=== PATIENT | male | born 1960 | race Caucasian/White ===

== ENCOUNTER → 2025-02-09 | Outpatient (CLI) | payer OTHER, SELFPAY | END | disposition home or self-care (01) | LOC: MTRAD 11:51 | PROVIDERS: PCP Family Medicine; Referring Provider Physician Assistant Surgical; Visit Provider Physician Assistant Surgical | DX: M25.521 Pain in right elbow (principal) | CPT/HCPCS: 73080 ==

== ENCOUNTER → 2025-02-23 | Outpatient (CLI) | payer OTHER, SELFPAY ==
[2025-02-23 10:46] LABS: Hematocrit 43.5 % (40-54); Hemoglobin 14.5 g/dL (13.0-16.5); Immature Granulocytes Count 0.020 X10^3/uL (0.0-0.0); Mean Corp Hgb Conc 33.3 g/dL (32-36); Mean Corpuscular Volume 92.6 fL (80-94); Mean Platelet Vol. 9.0 fl (6.2-12.0); NRBC Flagged by Analyzer 0 % (0-5); Platelet Count 180 K/mm3 (150-450); RBC Distribution Width CV 12.9 % (11.6-14.6); RBC Distribution Width SD 43.8 fl (35.1-43.9); Red Blood Count 4.70 M/mm3 (4.6-6.2); White Blood Count 7.7 K/mm3 (4.4-11.0)
[2025-02-23 11:35] LABS: AST(SGOT) 13 U/L (<=37); Alanine Aminotransfer ALT/SGPT 18 U/L (<=46); Albumin, Serum 3.8 g/dL (3.4-4.8); Alkaline Phosphatase 47 U/L (40-129); Anion Gap 11 (5-15); BUN 18 mg/dL (4-19); BUN/Creat Ratio 14.4 RATIO (10-20); Calcium,Total 9.4 mg/dL (7.6-11.0); Carbon Dioxide 28.4 mmol/L (21.0-32.0); Chloride 102 mmol/L (98-108); Cholesterol 176 mg/dL (<=200); Globulin 2.7 g/dL (2.2-4.2); Glucose 91 mg/dL (70-99); Low Density Lipoprotein Calc. 93 mg/dL; PSA,Total - Annual Screen 0.44 ng/mL (0.02-4.00); Potassium 4.0 mmol/L (3.3-5.1); Triglycerides 148 mg/dL; Very Low Density Lipoprotein 30 mg/dL (5-40); Vitamin D,25 Hydroxy 30.0 ng/mL (30-100); cholesterol:hdl ratio screen 3.27
== END | disposition home or self-care (01) ==
LOC: MTLAB 09:22
PROVIDERS: PCP Family Medicine; Referring Provider Family Medicine; Visit Provider Family Medicine
DX: E78.5 Hyperlipidemia, unspecified (principal); Z13.1 Encounter for screening for diabetes mellitus; Z12.5 Encounter for screening for malignant neoplasm of prostate
CPT/HCPCS: 36415; 80053; 80061; 82306; 84153; 85025; G0103

== ENCOUNTER → 2025-03-03 | Outpatient (CLI) | payer OTHER, SELFPAY ==
--- NOTE | 2025-03-03 07:51 | AAAS_ITS ---
Reason For Study Reason For Study: Tobacco Abuse / AAA Screening Aorta Measurements Aorta Doppler Measurements Proximal aorta measures2.38 x 2.37cm. in cross-sectional Peak systolic flow velocities within the proximal aorta axis. measure 66.9 cm/sec. Proximal aorta measures2.32cm. in longitudinal axis. Peak systolic flow velocities within the mid aorta measure Mid aorta measures1.91 x 1.87cm. in cross-sectional axis. 59.6 cm/sec. Mid aorta measures1.94cm. in longitudinal axis. Peak systolic flow velocities within the distal aorta Distal aorta measures1.64 x 1.62cm. in cross-sectional axis.measure 68.7 cm/sec. Distal aorta measures1.86cm. in longitudinal axis. Left Iliac Artery Left iliac artery measures 1.05 x 1.03 cm. in the cross-sectional axis. Left iliac artery measures 1.06 cm. in the longitudinal axis. Peak systolic velocity in the left iliac artery measures 72.3 cm/sec. Right Iliac Artery Right iliac artery measures 1.17 x 1.22 cm. in the cross-sectional axis. Right iliac artery measures 1.28 cm. in the longitudinal axis. Peak systolic velocity in the right iliac artery measures 110.4 cm/sec. VL/AAA Screening Interpretation Summary The dimensions of the intra-abdominal aorta are normal, without evidence of ane urysmal dilatation. The iliac arteries also appear to be normal in caliber bilaterally. The intra-abdominal aorta and iliac arteries appear patent, demonstrating normal, pulsatile arterial flow and normal peak systolic velociti es. Ordering Physician: Annetta Fernandez Referring Physician: Annetta Fernandez Performed By: Brian Zapien RVT
--- OUTSIDE RECORDS SUMMARY | 2025-03-03 08:09 | XMS RPT_ITS | CCD ---
Author Organization [facility] Care Team Providers Care Digital Hardware Design Engineer Name Role Phone Waldo Hayden Attending Provider Annetta Fernandez MD Primary Care Provider [phone] Waldo Hayden Referring Provider [phone] Annetta Fernandez MD Attending Provider [phone] Annetta Fernandez MD Referring Provider [phone] Wadlo Hayden Referring Unavailable Waldo Hayden Attending Unavailable Rebecca, Annetta Primary Care Unavailable Rebecca, Annetta Primary Care Unavailable Rebecca, Annetta Referring Unavailable Rebecca, Annetta Attending Unavailable Rebecca, Chalon Primary Care Unavailable Rebecca, Topheron Referring Unavailable Rebecca, Annetta Attending Unavailable Nasir TONY, Waldo Attending Unavailable Nasir TONY, Waldo Attending Unavailable Medications Current Medications Medication Drug Class(es) Dates Sig (Normalized) Sig (Original) aspirin 81 mg oral tablet (4 sources) Platelet Aggregation Inhibitor, Nonsteroidal Anti-inflammatory Drug Start: 02-03-2025 take 1 tablet by mouth once daily Aspirin 81 mg tablet Active 81 mg PO daily February 03, 2025 12:00am pravastatin sodium 80 mg oral tablet (4 sources) HMG-CoA Reductase Inhibitor Start: 02-03-2025 take 1 tablet by mouth once daily Pravastatin 80 mg tablet Active 80 mg PO daily February 03, 2025 12:00am Completed/Discontinued Medications Medication Drug Class(es) Dates Sig (Normalized) Sig (Original) diclofenac potassium 50 mg oral tablet (6 sources) Nonsteroidal Anti-inflammatory Drug Start: 02-09-2025 End: 02-19-2025 take 1 tablet by mouth twice daily Diclofenac Potassium 50 mg tablet Discontinued 50 mg PO TWICE A DAY 20 10 0 February 09, 2025 12:00am February 18, 2025 12:00am February 19, 2025 12:07am Start: 02-03-2025 Diclofenac Sod ium (Arthritis Pain (Diclofenac)) 1 % gel Active 4 g TOPICAL TWICE A DAY 50 0 February 03, 2025 12:00am apply to single knee, ankle, foot; for foot includes sole/toes/top of foot predniSONE 10 mg oral tablet (6 sources) Start: 02-09-2025 End: 02-21-2025 Prednisone 10 mg tablet Discontinued 10 mg PO As Directed 30 12 0 February 09, 2025 12:00am February 20, 2025 12:00am February 21, 2025 12:05am Unspecified contact dermatitis, unspecified cause Take 4 tabs once daily days 1-3 3 tabs once daily days 4-6 2 tabs once daily days 7-9 and 1 tab once daily days 10-12. Start: 02-03-2025 End: 02-08-2025 take 2 tablets by mouth once daily Prednisone 20 mg tablet Discontinued 40 mg PO daily 10 5 0 February 03, 2025 12:00am February 07, 2025 12:00am February 08, 2025 12:05am Problems Problem Classification Problem Date Documented Da te Episodic/Chronic Allergic reactions (5 sources) Environmental allergy; Translations: [Other allergy status, other than to drugs and biological substances] Onset: 02-09-2025 02-03-2025 Episodic Coronary atherosclerosis and other heart disease (4 sources) Coronary arteriosclerosis; Translations: [Atherosclerotic heart disease of [place] coronary artery without angina pectoris] 02-03-2025 Chronic Disorders of lipid metabolism (5 sources) Hyperlipidemia; Translations: [Hyperlipidemia, unspecified] Onset: 02-28-2025 02-03-2025 Chronic Gout and other crystal arthropathies (8 sources) 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; Translations: [Gout, unspecified] 02-03-2025 Chronic Other non-traumatic joint disorders (1 source) Pain in right elbow; Translations: [Pain in right elbow] Onset: 02-17-2025 Episodic Residual codes; unclassified (1 source) Tobacco use; Translations: [Tobacco use] Onset: 02-22-2025 Episodic Results Test Name Value Interpretation Reference Range Facility Absolute lymphocyte countOrd ered By: Annetta Fernandez on 2025 Lymphocytes Auto (Unsp spec) [#/Vol] 2.21 10*3/uL 0.83-4.51 [facility] Absolute neutrophil countOrd ered By: Annetta Ibanezke on 2025 Neutrophils (Bld) [#/Vol] 4.8 10*3/uL 2.0-7.7 [facility] Anion gap in Serum or Plasma Ordered By: Annetta Fernandez on 2025 Anion gap [Moles/Vol] 11 mmol/L 5-15 [facility] Automated lymphocyte count a s percentage of total leukocytesOrdered By: Annetta Fernandez on 2025 Lymphocytes/100 WBC Auto (Unsp spec) 28.8 % 19- [facility] BUN/creatinine ratioOrdered By: [facility]25 Urea nitrogen/Creatinine [Mass ratio] 14.4 mg/mg 10- [facility] Basophil percentageOrdered B y: Annetta Fernandez on 2025 Basophils/100 WBC (Bld) 0.8 % 0-1 [facility] Bilirubin, totalOrdered By: Annetta Fernandez on 2025 Bilirubin [Mass/Vol] 0.48 mg/dL 0.00-1.30 [facility] CBC W/Diff, Automatedon 02-07 Absolute Lymph 2.21 X10 3/uL Normal 0.83-4.51 [facility] Comment on above: Performed By: #### L 100.0100, L500.4100, L501.9910, L500.4050, L506.1001 #### [facility] [address] [place], [address] Absolute Neut 4.8 X10 3/uL Normal 2.0-7.7 [facility] Comment on above: Performed By: #### L 100.0100, L500.4100, L501.9910, L500.4050, L506.1001 #### [facility] [address] [place], [address] Basophils/100 WBC (Bld) 0.8 % Normal 0-1 [facility] Comment on above: Performed By: #### L 100.0100, L500.4100, L501.9910, L500.4050, L506.1001 #### [facility] [address] [place], [address] Eosinophils/100 WBC (Bld) 2.1 % Normal 0-5 [facility] Comment on above: Performed By: #### L 100.0100, L500.4100, L501.9910, L500.4050, L506.1001 #### [facility] [address] [place], [address] Erythrocyte distribution width (RBC) [Ratio] 12.9 % Normal 11.6-14.6 [facility] Comment on above: Performed By: #### L 100.0100, L500.4100, L501.9910, L500.4050, L506.1001 #### [facility] [address] [place], [address] Hematocrit (Bld) [Volume fraction] 43.5 % Normal 40-54 [facility] Comment on above: Performed By: #### L 100.0100, L500.4100, L501.9910, L500.4050, L506.1001 #### [facility] [address] [place], [address] Hemoglobin (Bld) [Mass/Vol] 14.5 g/dL Normal 13.0-16.5 [facility] Comment on above: Performed By: #### L 100.0100, L500.4100, L501.9910, L500.4050, L506.1001 #### [facility] [address] [place], [address] IG% 0.300 Normal 0.0-0.9 [facility] Comment on above: Result Comment: IG% - Immature Granulocytes (promyelocytes, myelocytes and metamyelocytes) > 1% indicates that a LEFT SHIFT is Present. Performed By: #### L 100.0100, L500.4100, L501.9910, L500.4050, L506.1001 #### [facility] [address] [place], [address] Lymphocytes/100 WBC (Bld) 28.8 % Normal 19-41 [facility] Comment on above: Performed By: #### L 100.0100, L500.4100, L501.9910, L500.4050, L506.1001 #### [facility] [address] [place], [address] MCH (RBC) [Entitic mass] 30.9 pg Normal 27.0-32.0 [facility] Comment on above: Performed By: #### L 100.0100, L500.4100, L501.9910, L500.4050, L506.1001 #### [facility] [address] [place], [address] MCHC (RBC) [Mass/Vol] 33.3 g/dL Normal 32-36 [facility] Comment on above: Performed By: #### L 100.0100, L500.4100, L501.9910, L500.4050, L506.1001 #### [facility] [address] [place], [address] MCV (RBC) [Entitic vol] 92.6 fL Normal 80-94 [facility] Comment on above: Performed By: #### L 100.0100, L500.4100, L501.9910, L500.4050, L506.1001 #### [facility] [address] [place], [address] Monocytes/100 WBC (Bld) 5.7 % Normal 0-10 [facility] Comment on above: Performed By: #### L 100.0100, L500.4100, L501.9910, L500.4050, L506.1001 #### [facility] [address] [place], [address] Neutrophils/100 WBC (Bld) 62.3 % Normal 47-70 [facility] Comment on above: Performed By: #### L 100.0100, L500.4100, L501.9910, L500.4050, L506.1001 #### [facility] [address] [place], [address] Nucleated RBC (Bld) [#/Vol] 0 10*3/uL Normal 0-5 [facility] Comment on above: Performed By: #### L 100.0100, L500.4100, L501.9910, L500.4050, L506.1001 #### [facility] [address] [place], [address] Platelet mean volume (Bld) [Entitic vol] 9.0 fL Normal 6.2-12.0 [facility] Comment on above: Performed By: #### L 100.0100, L500.4100, L501.9910, L500.4050, L506.1001 #### [facility] [address] [place], [address] Platelets (Bld) [#/Vol] 180 10*3/uL Normal 150-450 [facility] Comment on above: Performed By: #### L 100.0100, L500.4100, L501.9910, L500.4050, L506.1001 #### [facility] [address] [place], [address] RBC (Bld) [#/Vol] 4.70 10*6/uL Normal 4.6-6.2 [facility] Comment on above: Performed By: #### L 100.0100, L500.4100, L501.9910, L500.4050, L506.1001 #### [facility] [address] [place], [address] RDW SD 43.8 fl Normal 35.1-43.9 [facility] Comment on above: Performed By: #### L 100.0100, L500.4100, L501.9910, L500.4050, L506.1001 #### [facility] [address] [place], [address] WBC (Bld) [#/Vol] 7.7 10*3/uL Normal 4.4-11.0 [facility] Comment on above: Performed By: #### L 100.0100, L500.4100, L501.9910, L500.4050, L506.1001 #### [facility] [address] [place], [place], [address] Calculated very low density lipoprotein (VLDL) cholesterol measurementOrdered By: Annetta Fernandez on 2025 Calculated very low density lipoprotein (VLDL) cholesterol measurement 30 mg/dL 5-40 [facility] Carbon dioxide, total [Moles /volume] in Central venous bloodOrdered By: Annetta Fernandez on 2025 CO2 [Moles/Vol] 28.4 mmol/L 21.0-32.0 [facility] Chloride assayOrdered By: Glenroy Fernandez on 2025 Chloride [Moles/Vol] 102 mmol/L 98-108 [facility] Comprehensive Metabolic Prof ilon 2025 Albumin [Mass/Vol] 3.8 g/dL Normal 3.4-4.8 [facility] Comment on above: Performed By: #### L 100.0100, L500.4100, L501.9910, L500.4050, L506.1001 #### [facility] [address] [place], [address] Albumin/Globulin [Mass ratio] 1.4 {ratio} Normal 0.9-2.4 [facility] Comment on above: Performed By: #### L 100.0100, L500.4100, L501.9910, L500.4050, L506.1001 #### [facility] [address] [place], [address] ALK PHOS 47 U/L Normal 40-129 [facility] Comment on above: Performed By: #### L 100.0100, L500.4100, L501.9910, L500.4050, L506.1001 #### [facility] [address] [place], [address] ALT [Catalytic activity/Vol] 18 U/L Normal <=46 [facility] Comment on above: Performed By: #### L 100.0100, L500.4100, L501.9910, L500.4050, L506.1001 #### [facility] [address] [place], [address] AST [Catalytic activity/Vol] 13 U/L Normal <=37 [facility] Comment on above: Performed By: #### L 100.0100, L500.4100, L501.9910, L500.4050, L506.1001 #### [facility] [address] [place], [address] Bilirubin [Mass/Vol] 0.48 mg/dL Normal 0.00-1.30 [facility] Comment on above: Performed By: #### L 100.0100, L500.4100, L501.9910, L500.4050, L506.1001 #### [facility] [address] [place], [address] BUN/CRE 14.4 RATIO Normal 10-20 [facility] Comment on above: Performed By: #### L 100.0100, L500.4100, L501.9910, L500.4050, L506.1001 #### [facility] [address] [place], [address] Calcium [Mass/Vol] 9.4 mg/dL Normal 7.6-11.0 [facility] Comment on above: Performed By: #### L 100.0100, L500.4100, L501.9910, L500.4050, L506.1001 #### [facility] [address] [place], [address] Chloride [Moles/Vol] 102 mmol/L Normal 98-108 [facility] Comment on above: Performed By: #### L 100.0100, L500.4100, L501.9910, L500.4050, L506.1001 #### [facility] [address] [place], [address] CO2 [Moles/Vol] 28.4 mmol/L Normal 21.0-32.0 [facility] Comment on above: Performed By: #### L 100.0100, L500.4100, L501.9910, L500.4050, L506.1001 #### [facility] [address] [place], [address] Creatinine [Mass/Vol] 1.24 mg/dL High 0.70-1.20 [facility] Comment on above: Performed By: #### L 100.0100, L500.4100, L501.9910, L500.4050, L506.1001 #### [facility] [address] [place], [address] GAP 11 Normal 5-15 [facility] Comment on above: Performed By: #### L 100.0100, L500.4100, L501.9910, L500.4050, L506.1001 #### [facility] [address] [place], [address] GFR/1.73 sq M.predicted among non-blacks MDRD (S/P/Bld) [Vol rate/Area] 64 mL/min/{1.73_m2} Normal >60 [facility] Comment on above: Result Comment: mL/m in/1.73m2 CKD-EPI Creatinine Equation (2020) Performed By: #### L 100.0100, L500.4100, L501.9910, L500.4050, L506.1001 #### [facility] [address] [place], [address] Globulin (S) [Mass/Vol] 2.7 g/dL Normal 2.2-4.2 [facility] Comment on above: Performed By: #### L 100.0100, L500.4100, L501.9910, L500.4050, L506.1001 #### [facility] [address] [place], [address] Glucose [Mass/Vol] 91 mg/dL Normal 70-99 [facility] Comment on above: Performed By: #### L 100.0100, L500.4100, L501.9910, L500.4050, L506.1001 #### [facility] [address] [place], [address] Potassium [Moles/Vol] 4.0 mmol/L Normal 3.3-5.1 [facility] Comment on above: Performed By: #### L 100.0100, L500.4100, L501.9910, L500.4050, L506.1001 #### [facility] [address] [place], [address] Sodium [Moles/Vol] 141 mmol/L Normal 133-145 [facility] Comment on above: Performed By: #### L 100.0100, L500.4100, L501.9910, L500.4050, L506.1001 #### [facility] [address] [place], [address] T PROT 6.5 g/dL Normal 5.9-8.4 [facility] Comment on above: Performed By: #### L 100.0100, L500.4100, L501.9910, L500.4050, L506.1001 #### [facility] [address] [place], [address] Urea nitrogen [Mass/Vol] 18 mg/dL Normal 4-19 [facility] Comment on above: Performed By: #### L 100.0100, L500.4100, L501.9910, L500.4050, L506.1001 #### [facility] [address] [place], [address] Eosinophil percentageOrdered By: Annetta Fernandez on 2025 Eosinophils/100 WBC (Bld) 2.1 % 0-5 [facility] Erythrocyte distribution wid th ratioOrdered By: Annetta Fernandez on 2025 Erythrocyte distribution width (RBC) [Ratio] 12.9 % 11.6-14.6 [facility] Erythrocyte distribution wid th standard deviationOrdered By: Annetta Fernandez on 2025 Erythrocyte distribution width (RBC) [Ratio] 43.8 fl 35.1-43.9 [facility] Glomerular filtration rate ( GFR) estimation/1.73 sq m using serum, plasma, or whole bOrdered By: Annetta Fernandez on 2025 GFR/1.73 sq M.predicted among non-blacks MDRD (S/P/Bld) [Vol rate/Area] 64 mL/min/{1.73_m2} >60 [facility] Comment on above: mL/min/1.73m2 CKD-EP I Creatinine Equation (2020) Hematocrit Auto (Bld) [Volum e fraction]Ordered By: Annetta Fernandez on 2025 Hematocrit (Bld) [Volume fraction] 43.5 % 40-54 [facility] Hemoglobin measurementOrdere d By: Annetta Fernandez on 2025 Hemoglobin (Bld) [Mass/Vol] 14.5 g/dL 13.0-16.5 [facility] Immature granulocytes/100 WB C Auto (Bld)Ordered By: Annetta Fernandez on 2025 Immature granulocytes/100 WBC (Bld) 0.300 % 0.0-0.9 [facility] Comment on above: IG% - Immature Granu locytes (promyelocytes, myelocytes and metamyelocytes) > 1% indicates that a LEFT SHIFT is Present. LDL calc ser/plasOrdered By: Annetta Fernandez on 2025 Cholesterol in LDL [Mass/Vol] 93 mg/dL [facility] Comment on above: Csjjllvcqw=073-483 m g/dL & Higher Foua=882 mg/dL or greater Laboratory - Chemistry and C hemistry - challengeOrdered By: Annetta Fernandez on 2025 AST [Catalytic activity/Vol] 13 U/L <38 [facility] Lipid Profileon 2025 CHOL:HDL 3.27 Normal [facility] Comment on above: Performed By: #### L 100.0100, L500.4100, L501.9910, L500.4050, L506.1001 #### [facility] [address] [facility] [place], [address] Cholesterol [Mass/Vol] 176 mg/dL Normal <=200 [facility] Comment on above: Result Comment: Chol esterol level, Desirable <200 mg/dL Borderline high cholesterol 200-239 mg/dL High cholesterol >=240 mg/dL Recommendations of the NCEP Adult Treatment Panel for the following risk-cutoff thresholds for the [place] population. Performed By: #### L 100.0100, L500.4100, L501.9910, L500.4050, L506.1001 #### [facility] [address] [place], [address] Cholesterol in HDL [Mass/Vol] 54 mg/dL Normal [facility] Comment on above: Result Comment: Chantelle onal Cholesterol Education Program (NCEP) guidelines: <40 mg/dL: Low HDL-cholesterol (major risk factor for CHD) >= 60 mg/dL: High HDL-cholesterol (negative risk factor for CHD) HDL-cholesterol is affected by a number of factors, e.g. smoking, exercise, hormones, sex and age. Performed By: #### L 100.0100, L500.4100, L501.9910, L500.4050, L506.1001 #### [facility] [address] [place], [address] Cholesterol in LDL [Mass/Vol] 93 mg/dL Normal [facility] Comment on above: Result Comment: Bord fsloql=676-643 mg/dL Higher Svbo=075 mg/dL or greater Performed By: #### L 100.0100, L500.4100, L501.9910, L500.4050, L506.1001 #### [facility] [address] [place], [address] Cholesterol in VLDL [Mass/Vol] 30 mg/dL Normal 5-40 [facility] Comment on above: Performed By: #### L 100.0100, L500.4100, L501.9910, L500.4050, L506.1001 #### [facility] [address] [place], [address] Triglyceride [Mass/Vol] 148 mg/dL Normal [facility] Comment on above: Result Comment: The drugs N-Acetylcysteine and Metamizole may falsely depress this assay. Normal range: <150 mg/dL Borderline High: 150-199 mg/dL High: 200-499 mg/dL Very High: >500 mg/dL Performed By: #### L 100.0100, L500.4100, L501.9910, L500.4050, L506.1001 #### [facility] [address] [place], [address] MCV (mean corpuscular volume ) determinationOrdered By: Annetta Fernandez on 2025 MCV (RBC) [Entitic vol] 92.6 fL 80-94 [facility] Mean corpuscular hemoglobin (MCH) determinationOrdered By: Annetta Fernandez on 2025 MCH (RBC) [Entitic mass] 30.9 pg 27.0-32.0 [facility] Mean corpuscular hemoglobin concentration (MCHC) determinationOrdered By: Annetta Fernandez on 2025 MCHC (RBC) [Mass/Vol] 33.3 g/dL 32-36 [facility] Mean platelet volume determi nationOrdered By: Annetta Ibanezke on 2025 Platelet mean volume (Bld) [Entitic vol] 9.0 fL 6.2-12.0 [facility] Monocyte percentageOrdered B y: Topherroshni Ibanezke on 2025 Monocytes/100 WBC (Bld) 5.7 % 0-10 [facility] Neutrophil percentageOrdered By: Annetta Ibanezke on 2025 Neutrophils/100 WBC (Bld) 62.3 % 47-70 [facility] Nucleated red blood cell per centageOrdered By: Topherroshni Rebecca on 2025 Nucleated RBC/100 WBC (Bld) [Ratio] 0 % 0-5 [facility] PSA,Total - Annual Screenon 2025 PSA,TOT SCREEN 0.44 ng/mL Normal 0.02-4.00 [facility] Comment on above: Result Comment: This test was performed using the [facility] tPSA method. Measured values of a patient??sample can vary depending on the testing procedure used. PSA values determined on patient samples by different testing procedures cannot be used interchangeably. If there is a change in PSA assays while monitoring therapy, sequential testing should be performed to confirm baseline values. Performed By: #### L 100.0100, L500.4100, L501.9910, L500.4050, L506.1001 #### [facility] [address] [place], [place], [id number] Platelet countOrdered By: Glenroy Fernandez on 2025 Platelets (Bld) [#/Vol] 180 10*3/uL 150-450 [facility] Potassium measurement (mass/ volume)Ordered By: Annetta Fernandez on 2025 Potassium (Unsp spec) [Mass/Vol] 4.0 mmol/L 3.3-5.1 [facility] RBC Auto (Bld) [#/Vol]Ordere d By: Annetta Fernandez on 2025 RBC (Bld) [#/Vol] 4.70 10*6/uL 4.6-6.2 [facility] Screening total cholesterol/ high density lipoprotein (HDL) cholesterol ratioOrdered By: Annetta Fernandez on 2025 Cholesterol.total/Cholest len in HDL [Mass ratio] 3.27 {ratio} [facility] Serum creatinine measurement (mass/volume)Ordered By: Annetta Fernandez on 2025 Creatinine [Mass/Vol] 1.24 mg/dL High 0.70-1.20 [facility] Serum globulin measurementOr dered By: Annetta Fernandez on 2025 Globulin (S) [Mass/Vol] 2.7 g/dL 2.2-4.2 [facility] Serum glucose measurement (m ass/volume)Ordered By: Annetta Fernandez on 2025 Glucose [Mass/Vol] 91 mg/dL 70-99 [facility] Serum or plasma alanine fitch otransferase (ALT) measurementOrdered By: Annetta Fernandez on 2025 ALT [Catalytic activity/Vol] 18 U/L <47 [facility] Serum or plasma albumin paco urement (mass/volume)Ordered By: Annetta Fernandez on 2025 Albumin [Mass/Vol] 3.8 g/dL 3.4-4.8 [facility] Serum or plasma albumin/glob ulin mass ratioOrdered By: Annetta Fernandez on 2025 Albumin/Globulin [Mass ratio] 1.4 {ratio} 0.9-2.4 [facility] Serum or plasma alkaline dmitry sphatase measurementOrdered By: Annetta Fernandez on 2025 ALP [Catalytic activity/Vol] 47 U/L 40-129 [facility] Serum or plasma calcium paco urement (mass/volume)Ordered By: Annetta Fernandez on 2025 Calcium [Mass/Vol] 9.4 mg/dL 7.6-11.0 [facility] Serum or plasma cholesterol in HDL measurement (mass/volume)Ordered By: Annetta Fernandez on 2025 Cholesterol in HDL [Mass/Vol] 54 mg/dL >40 [facility] Comment on above: National Cholesterol Education Program (NCEP) guidelines:<40 mg/dL: Low HDL-cholesterol (major risk factor for CHD)>= 60 mg/dL: High HDL-cholesterol (negative risk factor for CHD)HDL-cholesterol is affected by a number of factors, e.g. smoking, exercise, hormones, sex and age. Serum or plasma cholesterol measurement (mass/volume)Ordered By: Annetta Fernandez on 2025 Cholesterol [Mass/Vol] 176 mg/dL <201 [facility] Comment on above: Cholesterol level, D esirable <200 mg/dLBorderline high cholesterol 200-239 mg/dLHigh cholesterol >=240 mg/dLRecommendations of the NCEP Adult Treatment Panel for the following risk-cutoff thresholds for the [place] population. Serum or plasma urea nitroge n measurement (mass/volume)Ordered By: Annetta Fernandez on 2025 Urea nitrogen [Mass/Vol] 18 mg/dL 4-19 [facility] Sodium levelOrdered By: Topher Fernandez on 2025 Sodium [Moles/Vol] 141 mmol/L 133-145 [facility] Total proteinOrdered By: Chantal Fernandez on 2025 Protein [Mass/Vol] 6.5 g/dL 5.9-8.4 [facility] Triglycerides measurementOrd ered By: Annetta Fernandez on 2025 Triglyceride [Mass/Vol] 148 mg/dL <199 [facility] Comment on above: The drugs N-Acetylcy steine and Metamizole may falsely depress this assay. Normal range: <150 mg/dLBorderline High: 150-199 mg/dLHigh: 200-499 mg/dLVery High: >500 mg/dL Vitamin D,25 Hydroxyon 02-23 Vitamin D 25-OH 30.0 ng/mL Normal 30-100 [facility] Comment on above: Result Comment: Laurie min D Status Deficiency: <20 ng/mL (50nmol/L) Insufficiency: 20-30 ng/mL (50-75 nmol/L) Sufficiency: 30-100 ng/mL (75-250 nmol/L) Toxicity: >100 ng/mL (>250 nmol/L) Performed By: #### L 100.0100, L500.4100, L501.9910, L500.4050, L506.1001 #### [facility] [address] [place], [address] White blood cell (WBC) count Ordered By: Annetta Fernandez on 2025 WBC (Bld) [#/Vol] 7.7 10*3/uL 4.4-11.0 [facility] Elbow min 3 Viewson 02-10-20 25 Elbow min 3 Views [facility] [address] [place] [address] Elbow min 3 Views MR#: [id number] Acct: [id number] Name: JAY MEDINA Rep #: [id number] : 1960 M 64 From: David Rosales PCP: Dr. Annetta Fernandez MD Status: REG CLI Study: Elbow min 3 Views Date of Exam: 02/09/25 Exam# [id number] Ordering Dr: Waldo Best PA PROCEDURE: ELBOW MIN 3 VIEWS 02/09/2025 REASON FOR EXAM: PAIN TECHNIQUE: ELBOW MIN 3 VIEWS COMPARISON: None. RAD/Elbow min 3 Views IMPRESSION: No significant right elbow joint effusion is seen. No soft tissue mass is identified. No erosive process is noted. Mild chronic appearing enthesophytes are seen of the ulnar olecranon and lateral epicondyle. Otherwise, no significant arthritic process or joint narrowing is seen. No fracture or dislocation is evident. Reading Location: [address] CC: CECILY Hoang; Dr. Annetta Fernandez MD Food Safety Technician: Signed Normal [facility] Urgent Care Visit Reporton 0 02-09-2025 Urgent Care Visit Report [facility] [address], [address] [place], [place] [address] OFFICE VISIT Date of Service: 02/09/25 MR#: [id number] Acct: [id number] Name: JAY MEDINA Rep #: [id number] : 1960 Provider: CECILY Hoang Age/Sex: 64/M Location: [facility] Status: Signed Intake Vital Signs 02/03/25 12:39 02/09/25 11:59 Height 5 ft 10 in Weight: 270 lb 8 oz BMI 38.8 BP 128/66 H 100/60 Blood Pressure Location Lt brachial Position Sitting Sitting Respiration 17 16 Pulse 87 60 Pulse Source NIBP Temp 98.7 F 97.8 F Temp Source Oral Oral Pulse Oximetry (%) 97 98 Oxygen Delivery Method room air room air Intake Visit Reasons: GOUT IN ELBOW Chief Complaint: right elbow pain Accompanied by: Is patient in pain?: Yes Pain scale (1-10): 5 Allergies No Known Allergies Allergy (Verified 02/09/25 12:05) Medications ???Medication ???Instructions ???Recorded ???Confirmed ???Type aspirin 81 mg tablet 81 mg PO QDAY 02/03/25 02/09/25 Hi story diclofenac sodium 1 % topical gel 4 g topical BID #50 grams 5 02/09/25 Rx (Arthritis Pain (diclofenac)) pravastatin 80 mg tablet 80 mg PO QDAY 02/03/25 02/09/25 Hi story diclofenac potassium 50 mg tablet 50 mg PO BID 10 days #20 tabs 11/0102/09/25 Rx prednisone 10 mg tablet 10 mg PO DIRECTED 12 days #30 0 02/09/25 02/09/25 Rx tabs Have you fallen in the past year?: No Nurse's Note: Patient Right elbow is still bothering him. Patient was here last Thursday for it. Patient states that when he took all the medication is when the pain came back. Patient states that it hurts in the bone and he feels like his muscle is swollen. [facility] Medical History (Updated 02/03/25 @ 14:44 by CECILY Montenegro) Environmental allergies Gout CAD (coronary artery disease) Hyperlipidemia Surgical History (Updated 02/03/25 @ 12:25 by Arlet Salvador) History of heart artery stent History of shoulder surgery Social History (Updated 02/03/25 @ 12:26 by Arlet Salvador) Smoking Status: Light Smoker (<10/day) alcohol intake: current substance use type: does not use HPI HPI Chief Complaint: right elbow pain Details: JAY BRINK, is a 64 M who presents to the office today for complaint of right elbow pain. Patient was here last week and treated for gouty arthritis and states that the prednisone did help however it returned as soon as the prednisone was done. Additionally patient states in the past he has used a pill form of the diclofenac. He has an appoint with his PCP on 02/21/2025. He denies any injury to the elbow and does have a self-reported history of gout. Patient denies numbness, tingling or loss of range of motion. No other associated symptoms or alleviating/aggrav ating factors. ROS Const Constitutional: No other (6 system ROS completed with pertinent findings in the HPI otherwise normal.) Exam Const General: cooperative and healthy appearing Resp Effort Inspection: normal respiratory effort Cardio Rate: regular rate Skin General: no rashes or lesions noted Neuro General: patient alert Extrem Other: Generalized swelling and erythema right elbow with pain to palpation. Psych Appearance: grossly normal Mental Status: mental status grossly normal Coding Level of Care Code Off vis,est,level 3 Diagnoses Gout of right elbow M10.9 Assessment and Plan Assessment and Plan (1) Gout of right elbow: Status: Acute Plan: Prednisone and diclofenac as prescribed today. Encouraged to get plenty of rest, drink lots of clear liquids, and use Tylenol or Ibuprofen (unless contraindicated) for fever and comfort. Patient also educated on other symptomatic management techniques. To be seen in 7-10 days if no improvement; sooner if worsening of symptoms. Patient advised of potential red flags and when appropriate to report to the ED. Patient verbalized understanding and agreement with all the above. Orders: Orders Elbow min 3 Views Today M25.521 - Pain in right elbow Medications: New prednisone Take 4 tabs once daily days 1-3 3 tabs once daily days 4-6 2 tabs once daily days 7-9 and 1 tab once daily days 10-12. 10 mg PO DIRECTED 30 tabs 0RF 12 days L25.9 - Unspecified contact dermatitis, unspecified cause diclofenac potassium 50 mg PO BID 20 tabs 0RF 10 days Clinical Quality Measures Falls Risk Screening/Assistiv e Devices Have you fallen in the past year?: No 02/09/25 8779 Date Waldo Araujoignsasha Signature: Date (if applicable) CC: Normal [facility] Urgent Care Visit Reporton 0 02-03-2025 Urgent Care Visit Report [facility] [address], [address] [place] [address] OFFICE VISIT Date of Service: 02/03/25 MR#: [id number] Acct: [id number] Name: JAY MEDINA Rep #: [id number] : 1960 Provider: CECILY Hoang Age/Sex: 64/M Location: [facility] Status: Signed Intake Vital Signs 02/03/25 12:39 Height 5 ft 10 in Weight: 270 lb 8 oz BMI 38.8 BP 128/66 H Blood Pressure Location Lt brachial Position Sitting Respiration 17 Pulse 87 Pulse Source NIBP Temp 98.7 F Temp Source Oral Pulse Oximetry (%) 97 Oxygen Delivery Method room air Intake Visit Reasons: CONCERN FOR GOUT Chief Complaint: right elbow pain [place] Required: No Is patient in pain?: Yes Allergies No Known Allergies Allergy (Verified 02/03/25 12:24) Medications ???Medication ???Instructions ???Recorded ???Confirmed ???Type aspirin 81 mg tablet 81 mg PO QDAY 02/03/25 02/03/25 Hi story diclofenac sodium 1 % topical gel 4 g topical BID #50 grams 5 02/03/25 Rx (Arthritis Pain (diclofenac)) pravastatin 80 mg tablet 80 mg PO QDAY 02/03/25 02/03/25 Hi story prednisone 20 mg tablet 40 mg (2 x 20 mg) PO QDAY 5 days 0 02/03/25 02/03/25 Rx #10 tabs Have you fallen in the past year?: No Nurse's Note: right elbow pain, swelling, warmth x 2 days. denies injury or trauma, hx of gout. pt also concerned right great toe for same. [facility] Medical History (Updated 02/03/25 @ 14:44 by Waldo TONY, PA) Environmental allergies Gout CAD (coronary artery disease) Hyperlipidemia Surgical History (Updated 02/03/25 @ 12:25 by Arlet Salvador) History of heart artery stent History of shoulder surgery Social History (Updated 02/03/25 @ 12:26 by Arlet Salvador) Smoking Status: Light Smoker (<10/day) alcohol intake: current substance use type: does not use HPI HPI Chief Complaint: right elbow pain Details: BONITA THOMPSON, is a 64 M who presents to the office today for complaint of gout in the right elbow. Patient states he has had gout previously with similar symptoms and noticed pain over the past 2 days. He denies fever, chills or sweats. No injury to the right elbow. No numbness, tingling or loss of range of motion. No other associated symptoms or alleviating/aggrav ating factors. ROS Const Constitutional: No other (6 system ROS completed with pertinent findings in the HPI otherwise normal.) Exam Const General: cooperative and healthy appearing Resp Effort Inspection: normal respiratory effort Cardio Rate: regular rate Skin General: no rashes or lesions noted Neuro General: patient alert Extrem Other: Generalized swelling and erythema right elbow with pain to palpation. Psych Appearance: grossly normal Mental Status: mental status grossly normal Coding Level of Care Code Off vis,new,level 3 Diagnoses Gout of right elbow M10.9 Assessment and Plan Assessment and Plan (1) Gout of right elbow: Status: Acute Plan: Prednisone and diclofenac as prescribed today. Encouraged to get plenty of rest, drink lots of clear liquids, and use Tylenol or Ibuprofen (unless contraindicated) for comfort. Patient also educated on other symptomatic management techniques. To be seen in 7-10 days if no improvement; sooner if worsening of symptoms. Patient advised of potential red flags and when appropriate to report to the ED. Patient verbalized understanding and agreement with all the above. Medications: New diclofenac sodium 1% (Arthritis Pain (diclofenac)) apply to single knee, ankle, foot; for foot includes sole/toes/top of foot 4 grams topical BID 50 grams 0RF prednisone 40 mg (2 x 20 mg) PO QDAY 10 tabs 0RF 5 days Clinical Quality Measures Falls Risk Screening/Assistiv e Devices Have you fallen in the past year?: No 02/03/25 5304 Date Waldo Rao Signature: Date (if applicable) CC: Normal [facility] Vital Signs Date Time Vital Sign Value Performing Clinician Faci lity 02-09-2025 11:59-0400 Body temperature 97.8 [degF] Annetta Fernandez MD Work Phone: [facility] 02-09-2025 11:59-0400 Diastolic blood pressure 60 mm[Hg] Annetta Fernandez MD Work Phone: [facility] 02-09-2025 11:59-0400 Heart rate 60 /min Annetta Fernandez MD Work Phone: [facility] 02-09-2025 11:59-0400 Respiratory rate 16 /min Annetta Fernandez MD Work Phone: [facility] 02-09-2025 11:59-0400 SaO2% (BldA) [Mass fraction] 98 % Annetta Fernandez MD Work Phone: [facility] 02-09-2025 11:59-0400 Systolic blood pressure 100 mm[Hg] Annetta Fernandez MD Work Phone: [facility] 02-03-2025 12:39-0400 Body height 177.8 cm Annetta Fernandez MD Work Phone: [facility] 02-03-2025 12:39-0400 Body mass index (BMI) [Ratio] 38.8 kg/m2 Annetta Fernandez MD Work Phone: [facility] 02-03-2025 12:39-0400 Body temperature 98.7 [degF] Annetta Fernandez MD Work Phone: [facility] 02-03-2025 12:39-0400 Body weight 122.69 kg Annetta Fernandez MD Work Phone: [facility] 02-03-2025 12:39-0400 Diastolic blood pressure 66 mm[Hg] Annetta Fernandez MD Work Phone: [facility] 02-03-2025 12:39-0400 Heart rate 87 /min Annetta Fernandez MD Work Phone: [facility] 02-03-2025 12:39-0400 Respiratory rate 17 /min Annetta Fernandez MD Work Phone: [facility] 02-03-2025 12:39-0400 SaO2% (BldA) [Mass fraction] 97 % Annetta Fernandez MD Work Phone: [facility] 02-03-2025 12:39-0400 Systolic blood pressure 128 mm[Hg] Annetta Fernandez MD Work Phone: [facility] Encounters Encounter Date Encounter Type Care Provider Facility Start: 03-03-2025 ambulatory Annetta Fernandez Facility:[facility] Start: 2025 End: 2025 ambulatory Annetta Fernandez MD Work Phone: [facility] [place] Start: 2025 End: [address] Annetta Fernandez MD [facility] [place] Work Phone: Start: 2025 End: 2025 ambulatory Annetta Fernandez Facility:[facility] Start: 02-09-2025 End: 02-09-2025 Patient encounter procedure Waldo TONY [facility] Work Phone: Start: 02-09-2025 End: 02-09-2025 ambulatory Annetta Fernandez MD Work Phone: [facility] Start: 02-09-2025 End: 02-09-2025 ambulatory Waldo TONY Facility:[facility] Start: 02-03-2025 End: 02-03-2025 Patient encounter procedure Waldo TONY [facility] Work Phone: Start: 02-03-2025 End: 02-03-2025 ambulatory Waldo Best PA [facility] Procedures Date Procedure Procedure Detail Performing Clinician Start: 2025 Prostate specific an tigen measurement Annetta Fernandez MD Work Phone: Comment on above: This test was perfor med using the [employer] tPSA method. Measured values of a patient sample can vary depending on the testing procedure used. PSA values determined on patient samples by different testing procedures cannot be used interchangeably. If there is a change in PSA assays while monitoring therapy, sequential testing should be performed to confirm baseline values. Start: 2025 Vitamin D, 25-hydrox y measurement Annetta Fernandez MD Work Phone: Comment on above: Vitamin D StatusDefi ciency: <20 ng/mL (50nmol/L)Insufficiency: 20-30 ng/mL (50-75 nmol/L)Sufficiency: 30-100 ng/mL (75-250 nmol/L)Toxicity: >100 ng/mL (>250 nmol/L) Start: 02-09-2025 Plain x-ray of elbow Ch norberto Fernandez MD Work Phone: Plan of Treatment Date Care Activity Detail Author Start: 02-09-2025 Plain x-ray of elbow Elbow min 3 Vie ws [facility] Start: 02-09-2025 XR Elbow GE 3 Views [facility] Payers Date Payer Category Payer Private Health Insurance [id number] 2025 Self-pay Unknown [id number] [id number] Unknown [id number] [id number] Unknown [id number] 2.16.8 [id number] Unknown [id number] 2.16.8 [id number] Unknown [id number] 2.16.8 [id number] Social History Date Type Detail Facility Start: 02-03-2025 Tobacco smoking stat NHIS Current Light tobacco smoker [facility] Start: 1960 Sex Assigned At Male [facility] Radiology Diagnostic study note 02-13-2025 Note Date & Type Note Facility 02-13-2025 Radiology Diagnostic study note [facility] [address] [place] [address] Elbow min 3 Views MR#: [id number] Acct: [id number] Name: JAY MEDINA Rep #: [id number] : 1960 M 64 From: Boyd Posey MD PCP: Dr. Annetta Fernandez MD Status: REG CL I Study:Elbow min 3 Views Date of Exam: Exam# [id number] Ordering Dr: Farshad Best PROCEDURE: ELBOW MIN 3 VIEWS 02/09/2025 REASON FOR EXAM: PAIN TECHNIQUE: ELBOW MIN 3 VIEWS COMPARISON: None. RAD/Elbow min 3 Views IMPRESSION: No significant right elbow joint effusion is seen. No soft tissue mass is identified. No erosive process is noted. Mild chronic appearing enthesophytes are seen of the ulnar olecranon and lateralepicondyle. Otherwise, no significant arthritic process or joint narrowing is seen. No fracture or dislocation is evident. Reading Location: [address] CC: CECILY Hoang; Dr. Annetta Fernandez MD ~ Food Safety Technician: Signed [facility] Evaluation note 02-03-2025 Note Date & Type Note Facility 02-03-2025 Evaluation note Diagnosis Onset Date Resolution Gout of right elbow acute February 03, 2025 12:16pm [facility] Work Phone: Evaluation note 02-03-2025 Note Date & Type Note Facility 02-03-2025 Evaluation note Diagnosis Onset Date Resolution Gout of right elbow acute February 03, 2025 12:16pm Gout of right elbow acute February 09, 2025 11:39am [facility] Work Phone: Evaluation note Note Date & Type Note Facility Evaluation note No assessment information availa ble [facility] Work Phone: Reason for referral (narrative) Note Date & Type Note Facility Reason for referral (narrative) No reason for referral information available [facility] Work Phone: Chief Complaint and Reason for Visit Chief Complaint Admit Date CONCERN FOR GOUT February 03, 2025 12:1 6pm Chief Complaint Admit Date CONCERN FOR GOUT February 03, 2025 12:1 6pm GOUT IN ELBOW February 09, 2025 11:39 am Reason for Visit Admit Date Gout of right elbow February 03, 2025 12:1 6pm Reason for Visit Admit Date Gout of right elbow February 03, 2025 12:1 6pm Gout of right elbow February 09, 2025 11:39 am Chief Complaint Admit Date CONCERN FOR GOUT February 03, 2025 12:1 6pm GOUT IN ELBOW February 09, 2025 11:39 am DIABETES 2025 9:20 am Summary Purpose Family History No Family History Records Found Advance Directives No Advanced Directives Records Found Additional Source Comments Care Teams (unrecognized sec tion and content) Team Status: Inactive Member Role/Relationship Status Dates CECILY Montenegro Attending Provider Active Sta rt: February 03, 2025 End: February 03, 2025 Team Status: Active Member Role/Relationship Status Rufina Fernandez MD Primary Care Provider Active Team Status: Inactive Member Role/Relationship Status CECILY Perez Attending Provider Active Sta rt: February 03, 2025 End: February 03, 2025 Team Status: Inactive Member Role/Relationship Status Dates CECILY Montenegro Attending Provider Active Sta rt: February 09, 2025 End: February 09, 2025 Team Status: Active Member Role/Relationship Status Rufina Fernandez MD Primary Care Provider Active St art: February 09, 2025 CECILY Montenegro Attending Provider Active Sta rt: February 09, 2025 CECILY Montenegro Referring Provider Active Sta rt: February 09, 2025 Team Status: Inactive Member Role/Relationship Status Rufina Fernandez MD Primary Care Provider Active St art: February 09, 2025 End: February 09, 2025 CECILY Montenegro Attending Provider Active Sta rt: February 09, 2025 End: February 09, 2025 CECILY Montenegro Referring Provider Active Sta rt: February 09, 2025 End: February 09, 2025 Team Status: Inactive Member Role/Relationship Status Dates Annetta Fernandez MD Primary Care Provider Active St art: 2025 End: 2025 Annetta Fernandez MD Attending Provider Active Start : 2025 End: 2025 Annetta Fernandez MD Referring Provider Active Start : 2025 End: 2025 Goals (unrecognized section and content) Goals may be documented in a n alternate sectionGoals may be documented in an alternate sectionGoals may be documented in an alternate sectionGoals may be documented in an alternate section (unrecognized sect ion and content) No Status Records Found INFORMATION SOURCE (unrecogn ized section and content) DATE CREATED AUTHOR 03/02/2025 [facility] FOR RECORDS PERTAINING TO PATIENTS WHO ARE OR HAVE BEEN ENROLLED IN A CHEMICAL DEPENDENCY/SUBSTANCEABUSE PROGRAM, SOME INFORMATION MAY BE OMITTED. This clinical summary was aggregated from multiple sources. Caution should be exercised in using it in the provision of clinical care. This summary normalizes information from multiple sources, and as a consequence, information in this document may materially change the coding, format and clinical context of patient data. In addition, data may be omitted in some cases. CLINICAL DECISIONS SHOULD BE BASED ON THE PRIMARY CLINICAL RECORDS. [employer] provides no warranty or guarantee of the accuracy or completeness of information in this document.
== END | disposition home or self-care (01) ==
LOC: CVS 07:48
PROVIDERS: PCP Family Medicine; Referring Provider Family Medicine; Visit Provider Family Medicine
DX: Z13.6 Encounter for screening for cardiovascular disorders (principal); Z72.0 Tobacco use
CPT/HCPCS: 76706